=== PATIENT | male | born 1995 | race Hispanic/Latino ===

== ENCOUNTER 2020-10-24 | Emergency (ER) | payer OTHER ==
[2020-10-24] MEDS ORDERED: BACTRIM DS1 TAB PO ×2 (09:22→10:10)
[2020-10-24] MEDS ORDERED: NAPROXEN500 MG PO (10:10)
[2020-10-24] MEDS ORDERED: KEFLEX500 M1 PO (10:10)
== END 2020-10-24 10:41 | disposition home or self-care (01) | DRG 603 ==
PROC: 0H9KXZZ Drainage of Right Lower Leg Skin, External Approach (ICD-10-PCS; principal; 2020-10-24)
DX: L02.415 Cutaneous abscess of right lower limb (principal); B95.61 Methicillin susceptible Staphylococcus aureus infection as the cause of diseases classified elsewhere

== ENCOUNTER 2020-10-25 | Emergency (ER) | payer OTHER ==
[~2020-10-25] MED LIST: BACTRIM DS1 TAB PO; KEFLEX500 M1 PO; NAPROXEN500 MG PO
== END 2020-10-25 09:45 | disposition home or self-care (01) | DRG 951 ==
DX: Z48.01 Encounter for change or removal of surgical wound dressing (principal)

== ENCOUNTER 2020-10-26 | Emergency (ER) | payer OTHER | END 2020-10-26 09:47 | disposition home or self-care (01) | DRG 951 | DX: Z48.01 Encounter for change or removal of surgical wound dressing (principal) ==

== ENCOUNTER 2020-10-28 | Emergency (ER) | payer OTHER | END 2020-10-28 12:30 | disposition home or self-care (01) | DRG 951 | DX: Z48.01 Encounter for change or removal of surgical wound dressing (principal) ==

== ENCOUNTER 2022-10-02 08:45 | Emergency (ER) | payer SELFPAY ==
[2022-10-02] VITALS (9 sets, daily range): BP systolic 104–132; BP diastolic 69–95
[~2022-10-02] VITALS: Ht 177.8 cm; Wt 68.0 kg
[2022-10-02] MEDS ORDERED: PROTONIX40 MG PO (10:31)
== END 2022-10-02 10:55 | disposition home or self-care (01) | DRG 641 ==
LOC: ED 08:45
DX: E86.0 Dehydration (principal); R11.2 Nausea with vomiting, unspecified